=== PATIENT | female | born 1945 ===

== ENCOUNTER 2021-07-15 03:16 | Emergency (ER) | payer MEDICARE, OTHER ==
--- NOTE | 2021-07-15 03:34 | EDM.PDOC ---
ED HPI GENERAL MEDICAL PROBLEM - General Stated Complaint: CHEST PAIN COVID POSITIVE Time Seen by Provider: 07/15/21 03:31 Source of Information: Reports: Patient, RN, RN Notes Reviewed History Limitations: Reports: No Limitations - History of Present Illness INITIAL COMMENTS - FREE TEXT/NARRATIVE: Cristi is a 75 y/o female who present to the ED via personal vehicle with complaints of chest pain. The patient reports she was diagnosed with a COVID infection six days ago as her tested positive; she developed fever four days ago. She notes the pain began in her chest approximately one hour prior to her arrival to this facility. She characterized the pain as a burning that was localized to her midsternal abdomen/chest. Additionally, she noted nausea which has slowly subsided along with her pain. She tried a dose of Mylanta and Tums x2 which offered her no immediate relief. She denies recent fever, shaking chills, cough, sore throat, palpitations, shortness of breath, vomiting, abdomi nal pain, vomiting, constipation, diarrhea, dysuria, or hematuria. The patient currently characterizes her pain as a dull ache. - Related Data Allergies Allergy/AdvReac Type Severity Reaction Status Date / Time hydromorphone [From Dilaudid] Allergy Shortness Verified 07/15/21 03:41 of Breath nickel Allergy Rash Verified 07/15/21 03:41 Sulfa (Sulfonamide Allergy Hives Verified 07/15/21 03:41 Antibiotics) Home Meds: Home Meds Aspirin 81 mg PO BRK 07/03/16 [History] Calcium Carbonate/Vitamin D3 [Calcium 500 + Vit D Caplet] 1,200 mg PO BID 07/03/16 [History] Denosumab [Prolia] 60 mg SUBCUT ONETIME 07/03/16 [History] Ergocalciferol (Vitamin D2) [Vitamin D] 5,000 unit PO DAILY 07/03/16 [History] Levothyroxine [Synthroid] 112 mcg PO ACBREAKFAST 07/03/16 [History] Magnesium 250 mg PO DAILY 07/03/16 [History] Rosuvastatin [Crestor] 5 mg PO BEDTIME 07/03/16 [History] Multivitamin [Multivitamins] 1 cap PO DAILY 01/04/17 [History] Cimetidine [Tagamet Hb] 1 tab PO ASDIRECTED 07/07/19 [History] Ubidecarenone [Coq-10] 100 mg PO DAILY 02/11/21 [History] Past Medical History HEENT History: Reports: Glaucoma, Impaired Vision Cardiovascular History: Reports: High Cholesterol Respiratory History: Reports: Sleep Apnea Other Respiratory History: WEARS CPAP MACHINE AT NIGHT Gastrointestinal History: Reports: Cholelithiasis, GERD, Other (See Below) Other Gastrointestinal History: GASTRIC ULCER - IMPROVED TODAY Genitourinary History: Reports: None WEIGHER OPERATOR History: Reports: , Other (See Below) Other WEIGHER OPERATOR History: PROLAPSED VAGINAL WALL - REPAIRED Musculoskeletal History: Reports: Osteoarthritis, Osteoporosis Neurological History: Reports: None Psychiatric History: Reports: None Endocrine/Metabolic History: Reports: Hypothyroidism Hematologic History: Reports: None Immunologic History: Reports: None Oncologic (Cancer) History: Reports: Thyroid Dermatologic History: Reports: None - Infectious Disease History Infectious Disease History: Reports: Chicken Pox, Measles - Past Surgical History Head Surgeries/Procedures: Reports: None HEENT Surgical History: Reports: Adenoidectomy, Cataract Surgery, Tonsillectomy, Other (See Below) Other HEENT Surgeries/Procedures: cataract extraction bilateral Cardiovascular Surgical History: Reports: None Respiratory Surgical History: Reports: None GI Surgical History: Reports: Appendectomy, Cholecystectomy, Colonoscopy, EGD Female Surgical History: Reports: Breast Biopsy, Hysterectomy, Other (See Below) Other Female Surgeries/Procedures: surg for vaginal prolapse Endocrine Surgical History: Reports: Parathyroidectomy, Thyroidectomy Musculoskeletal Surgical History: Reports: None Oncologic Surgical History: Reports: None Dermatological Surgical History: Reports: None Social & Family History - Family History Family Medical History: No Pertinent Family History - Caffeine Use Caffeine Use: Reports: Coffee Other Caffeine Use: AVERAGE OF 2-5 CUPS OF COFFEE DAILY ED ROS GENERAL - Review of Systems Review Of Systems: Comprehensive ROS is negative, except as noted in HPI. ED EXAM, GENERAL - Physical Exam Exam: See Below Exam Limited By: No Limitations General Appearance: Alert, No Apparent Distress, Thin Eye Exam: Bilateral Eye: EOMI, Normal Inspection, PERRL (3mm) Ears: Normal External Exam, Normal Canal, Hearing Grossly Normal, Normal TMs Nose: Normal Inspection, Normal Mucosa, No Blood Throat/Mouth: Normal Inspection, Normal Oropharynx, Normal Voice, No Airway Compromise Head: Atraumatic, Normocephalic Neck: Normal Inspection, Full Range of Motion Respiratory/Chest: No Respiratory Distress, Lungs Clear, Normal Breath Sounds, No Accessory Muscle Use, Chest Non-Tender. No: Crackles, Rales, Rhonchi, Wheezing, Stridor Cardiovascular: Normal Peripheral Pulses, Regular Rate, Rhythm, No Edema, No Gallop, No JVD, No Murmur, No Rub Peripheral Pulses: 2+: Radial (L), Radial (R), Femoral (L) GI/Abdominal: Normal Bowel Sounds, Soft, Non-Tender, No Distention, No Abnormal Bruit, No Mass, Pelvis Stable. No: Guarding, Rigid, Rebound (Female) Exam: Deferred Rectal (Female) Exam: Deferred Back Exam: Normal Inspection, Full Range of Motion. No: CVA Tenderness (L), CVA Tenderness (R) Extremities: Normal Inspection, Normal Range of Motion, Non-Tender, No Pedal Edema, Normal Capillary Refill Neurological: Alert, Oriented, CN II-XII Intact, Normal Cognition, Normal Gait, No Motor/Sensory Deficits Psychiatric: Normal Affect, Normal Mood Skin Exam: Warm, Dry, Intact, Normal Color, No Rash. No: Cyanosis, Jaundice, Mottled, Pallor #2 Interpretation EKG Date: 07/15/21 Time: 03:26 Rhythm: NSR Rate (Beats/Min): 78 [place]: Normal P-Wave: Present QRS: Normal ST-T: Normal QT: Prolonged (0.527) AL/PQ Interval: 0.132 Comparison: NA - No Prior EKG EKG Interpretation Comments: NSR; Prolonged QT; No evidence of acute myocardial ischemia Course - Vital Signs Last Recorded V/S: Last Vital Signs Temp 97.1 F 07/15/21 03:43 Pulse 81 07/15/21 03:43 Resp 18 07/15/21 03:43 BP 148/92 H 07/15/21 03:43 Pulse Ox 97 07/15/21 03:43 - Orders/Labs/Meds Labs: Laboratory Tests 07/15/21 07/15/21 07/15/21 Range/Units 03:35 03:35 03:35 WBC 6.5 (5.0-10.0) 10^3/uL RBC 5.23 (4.2-5.4) 10^6/uL Hgb 16.0 (12.0-16.0) g/dL Hct 48.4 H (37.0-47.0) % MCV 92.5 D (80-100) fL MCH 30.6 (27.0-34.0) pg MCHC 33.1 (33.0-35.0) g/dL Plt Count 197 (150-450) 10^3/uL Neut % (Auto) 61.2 (42.2-75.2) % Lymph % (Auto) 25.9 (20.5-50.1) % Mcmullen % (Auto) 10.9 H (2-8) % Eos % (Auto) 1.7 (1.0-3.0) % Baso % (Auto) 0.3 (0.0-1.0) % PT 9.6 (9.0-12.0) SEC INR 1.0 (0.9-1.2) APTT 25.7 (22.0-34.0) SEC D-Dimer, Quantitative 282 (0-400) ng/mL Sodium 141 (136-145) mmol/L Potassium 3.9 (3.5-5.1) mmol/L Chloride 103 (98-107) mmol/L Carbon Dioxide 27 (21-32) mmol/L Anion Gap 14.9 H (7-13) mEq/L BUN 18 (7-18) mg/dL Creatinine 0.93 (0.55-1.02) mg/dL Est Cr Clr Drug Dosing 43.75 mL/min Estimated GFR (MDRD) 58 BUN/Creatinine Ratio 19.4 (No establ ref range) Glucose 112 H (70-99) mg/dL Lactic Acid (0.4-2.0) mmol/L Calcium 9.8 (8.5-10.1) mg/dL Magnesium 2.3 (1.8-2.4) mg/dL Total Bilirubin 0.4 (0.2-1.0) mg/dL AST 39 H (15-37) U/L ALT 48 (14-59) U/L Alkaline Phosphatase 59 (46-116) U/L Troponin I High Sens 5 (<=51) pg/mL C-Reactive Protein 1.3 H (0.0-0.9) mg/dL B-Natriuretic Peptide 30 (0-100) pg/ml Total Protein 7.2 (6.4-8.2) g/dL Albumin 3.6 (3.4-5.0) g/dL Globulin 3.6 Albumin/Globulin Ratio 1.0 Amylase (25-115) U/L Lipase (73-393) U/L Urine Color (YELLOW) Urine Appearance (CLEAR) Urine pH (5.0-9.0) Ur Specific [place] (1.005-1.030) Urine Protein (NEGATIVE) Urine Glucose (UA) (NEGATIVE) Urine Ketones (NEGATIVE) Urine Occult Blood (NEGATIVE) Urine Nitrite (NEGATIVE) Urine Bilirubin (NEGATIVE) Urine Urobilinogen (0.2-1.0) mg/dL Ur Leukocyte Esterase (NEGATIVE) Urine RBC (0-5) /HPF Urine WBC (0-5/HPF) /HPF Ur Epithelial Cells (NOT SEEN) /HPF Urine Bacteria (0-FEW/HPF) /HPF Ethyl Alcohol (0) mg/dL 07/15/21 07/15/21 07/15/21 Range/Units 03:35 03:35 03:35 WBC (5.0-10.0) 10^3/uL RBC (4.2-5.4) 10^6/uL Hgb (12.0-16.0) g/dL Hct (37.0-47.0) % MCV (80-100) fL MCH (27.0-34.0) pg MCHC (33.0-35.0) g/dL Plt Count (150-450) 10^3/uL Neut % (Auto) (42.2-75.2) % Lymph % (Auto) (20.5-50.1) % Mcmullen % (Auto) (2-8) % Eos % (Auto) (1.0-3.0) % Baso % (Auto) (0.0-1.0) % PT (9.0-12.0) SEC INR (0.9-1.2) APTT (22.0-34.0) SEC D-Dimer, Quantitative (0-400) ng/mL Sodium (136-145) mmol/L Potassium (3.5-5.1) mmol/L Chloride (98-107) mmol/L Carbon Dioxide (21-32) mmol/L Anion Gap (7-13) mEq/L BUN (7-18) mg/dL Creatinine (0.55-1.02) mg/dL Est Cr Clr Drug Dosing mL/min Estimated GFR (MDRD) BUN/Creatinine Ratio (No establ ref range) Glucose (70-99) mg/dL Lactic Acid 0.9 (0.4-2.0) mmol/L Calcium (8.5-10.1) mg/dL Magnesium (1.8-2.4) mg/dL Total Bilirubin (0.2-1.0) mg/dL AST (15-37) U/L ALT (14-59) U/L Alkaline Phosphatase (46-116) U/L Troponin I High Sens (<=51) pg/mL C-Reactive Protein (0.0-0.9) mg/dL B-Natriuretic Peptide (0-100) pg/ml Total Protein (6.4-8.2) g/dL Albumin (3.4-5.0) g/dL Globulin Albumin/Globulin Ratio Amylase 320 H (25-115) U/L Lipase > 2250 H (73-393) U/L Urine Color (YELLOW) Urine Appearance (CLEAR) Urine pH (5.0-9.0) Ur Specific [place] (1.005-1.030) Urine Protein (NEGATIVE) Urine Glucose (UA) (NEGATIVE) Urine Ketones (NEGATIVE) Urine Occult Blood (NEGATIVE) Urine Nitrite (NEGATIVE) Urine Bilirubin (NEGATIVE) Urine Urobilinogen (0.2-1.0) mg/dL Ur Leukocyte Esterase (NEGATIVE) Urine RBC (0-5) /HPF Urine WBC (0-5/HPF) /HPF Ur Epithelial Cells (NOT SEEN) /HPF Urine Bacteria (0-FEW/HPF) /HPF Ethyl Alcohol < 3 (0) mg/dL 07/15/21 Range/Units 05:30 WBC (5.0-10.0) 10^3/uL RBC (4.2-5.4) 10^6/uL Hgb (12.0-16.0) g/dL Hct (37.0-47.0) % MCV (80-100) fL MCH (27.0-34.0) pg MCHC (33.0-35.0) g/dL Plt Count (150-450) 10^3/uL Neut % (Auto) (42.2-75.2) % Lymph % (Auto) (20.5-50.1) % [place] % (Auto) (2-8) % Eos % (Auto) (1.0-3.0) % Baso % (Auto) (0.0-1.0) % PT (9.0-12.0) SEC INR (0.9-1.2) APTT (22.0-34.0) SEC D-Dimer, Quantitative (0-400) ng/mL Sodium (136-145) mmol/L Potassium (3.5-5.1) mmol/L Chloride (98-107) mmol/L Carbon Dioxide (21-32) mmol/L Anion Gap (7-13) mEq/L BUN (7-18) mg/dL Creatinine (0.55-1.02) mg/dL Est Cr Clr Drug Dosing mL/min Estimated GFR (MDRD) BUN/Creatinine Ratio (No establ ref range) Glucose (70-99) mg/dL Lactic Acid (0.4-2.0) mmol/L Calcium (8.5-10.1) mg/dL Magnesium (1.8-2.4) mg/dL Total Bilirubin (0.2-1.0) mg/dL AST (15-37) U/L ALT (14-59) U/L Alkaline Phosphatase (46-116) U/L Troponin I High Sens (<=51) pg/mL C-Reactive Protein (0.0-0.9) mg/dL B-Natriuretic Peptide (0-100) pg/ml Total Protein (6.4-8.2) g/dL Albumin (3.4-5.0) g/dL Globulin Albumin/Globulin Ratio Amylase (25-115) U/L Lipase (73-393) U/L Urine Color Yellow (YELLOW) Urine Appearance Clear (CLEAR) Urine pH 7.0 (5.0-9.0) Ur Specific [place] 1.020 (1.005-1.030) Urine Protein Negative (NEGATIVE) Urine Glucose (UA) Negative (NEGATIVE) Urine Ketones Negative (NEGATIVE) Urine Occult Blood Trace-intact H (NEGATIVE) Urine Nitrite Negative (NEGATIVE) Urine Bilirubin Negative (NEGATIVE) Urine Urobilinogen 0.2 (0.2-1.0) mg/dL Ur Leukocyte Esterase Negative (NEGATIVE) Urine RBC 0-5 (0-5) /HPF Urine WBC 0-5 (0-5/HPF) /HPF Ur Epithelial Cells Few (NOT SEEN) /HPF Urine Bacteria Rare (0-FEW/HPF) /HPF Ethyl Alcohol (0) mg/dL Meds: Medications Discontinued Medications Generic Name Dose Route Start Last Admin Trade Name Isaiah PRN Reason Stop Dose Admin Iopamidol 100 ml 07/15/21 04:22 07/15/21 05:17 Iopamidol 612 Mg/Ml 100 Ml Bottle IVPUSH 07/15/21 04:23 75 ml ONETIME ONE Administration - Radiology Interpretation Free Text/Narrative:: [facility] Final Radiology Report Call: [phone] assistance Online chat: [email or web address] Name: CRISTI FORBES Age: 75Years F Date: 07/15/2021 SSN: -- : [id number] Study: CT ABDOMEN PELVIS W CONT Requesting Physician: Jeniffer Powell Images: [id number] Addl Studies: Provided Clinical History: Lipase >2250, midsternal abdominal/chest pain Contrast: With Contrast Medium: isovue 300 Contrast Amount: 75 mL Contrast Method: Intravenous (IV) Page 1 of 2 PROCEDURE INFORMATION: Exam: CT Abdomen And Pelvis With Contrast Exam date and time: 07/15/2021 5:14 AM Age: 75 years old Clinical indication: Abdominal pain; Generalized; Prior surgery; Surgery date: 6+ months; Surgery type: Gallbladder and appendix removed; Patient HX: Thyroid cancer, high blood pressure; Additional info: Lipase >2250, midsternal abdominal/chest pain TECHNIQUE: Imaging protocol: Computed tomography of the abdomen and pelvis with contrast. Radiation optimization: All CT scans at this facility use at least one of these dose optimization techniques: automated exposure control; mA and/or kV adjustment per patient size (includes targeted exams where dose is matched to clinical indication); or iterative reconst ruction. Contrast material: ISOVUE 300; Contrast volume: 75 ml; Contrast route: INTRAVENOUS (IV); COMPARISON: No relevant prior studies available. FINDINGS: Liver: Normal. No mass. Gallbladder and bile ducts: Status post cholecystectomy. Pancreas: No CT evidence for pancreatitis. Spleen: Normal. No splenomegaly. Adrenal glands: Normal. No mass. Kidneys and ureters: Bilateral nonobstructing renal calculi measuring 1-2 mm each but no evidence for hydronephrosis or ureterolithiasis. Stomach and bowel: Colonic diverticulosis but no definite diverticulitis. Appendix: Status post appendectomy. Intraperitoneal space: Unremarkable. No free air. No significant fluid collection. Vasculature: Unremarkable. No abdominal aortic aneurysm. Lymph nodes: Unremarkable. No enlarged lymph nodes. Urinary bladder: Unremarkable as visualized. Reproductive: Unremarkable as visualized. Bones/joints: Unremarkable. No acute fracture. Soft tissues: Unremarkable. IMPRESSION: 1. Bilateral nonobstructing renal calculi measuring 1-2 mm each but no evidence for hydronephrosis or ureterolithiasis. 2. No CT evidence for pancreatitis. 3. Colonic diverticulosis but no definite diverticulitis. Thank you for allowing us to participate in the care of your patient. Dictated and Authenticated by: Silvestre Singh MD 07/15/2021 6:30 AM Central Time ([place] & [place]) - Re-Assessments/Exams Free Text/Narrative Re-Assessment/Exam: 07/15/21 CT abdomen/pelvis obtained given elevation in Lipase. Patient continues to deny pain at this time. CT unremarkable for acute pancreatitis. Case discussed with Dr. Polk who states he would gladly accept the patient if she felt she required monitoring, however she is currently nonsymptomatic, and remains that way. The patient states she would not like to be hospitalized given her lack of symptoms. Plan for patient to follow up in 24 hours with PCP for repeat lab work. Patient to follow up with her PCP sooner, or return to the emergency department, should symptoms return. Red flag signs and symptoms which would warrant immediate reevaluation reviewed. Patient verbalized understanding and agreement with the plan of care. Departure - Departure Time of Disposition: 07:08 Disposition: Home, Self-Care 01 Condition: Fair Clinical Impression: Elevated amylase and lipase, COVID-19 Instructions: COVID-19: What to Do If You Are Sick- [facility] (11/27/2020) Referrals: PCP,None [Primary Care Provider] - Forms: ED Department Discharge Additional Instructions: 1.) Follow up with your primary care provider tomorrow for repeat labs, including liver enzymes, lipase, and amylase. 2.) Clear liquid diet. 3.) Return to the emergency department with any return of symptoms.
[2021-07-15 03:51] VITALS: BP 148/92; PULSE 81
[2021-07-15 04:05] LABS: ANION GAP 14.9 mEq/L (7-13)
[2021-07-15 04:15] LABS: PTT,PARTIAL THROMBOPLSTIN TIME 25.7 SEC (22.0-34.0)
[2021-07-15] MEDS ORDERED: Iopamidol 612 MG/ML 100 ML Bottle IVPUSH ONE (04:22)
--- NOTE | 2021-07-15 06:31 | CT ---
PROCEDURE INFORMATION: Exam: CT Abdomen And Pelvis With Contrast Exam date and time: 07/15/2021 5:14 AM Age: 75 years old Clinical indication: Abdominal pain; Generalized; Prior surgery; Surgery date: 6+ months; Surgery type: Gallbladder and appendix removed; Patient HX: Thyroid cancer, high blood pressure; Additional info: Lipase >2250, midsternal abdominal/chest pain TECHNIQUE: Imaging protocol: Computed tomography of the abdomen and pelvis with contrast. Radiation optimization: All CT scans at this facility use at least one of these dose optimization techniques: automated exposure control; mA and/or kV adjustment per patient size (includes targeted exams where dose is matched to clinical indication); or iterative reconstruction. Contrast material: ISOVUE 300; Contrast volume: 75 ml; Contrast route: INTRAVENOUS (IV); COMPARISON: No relevant prior studies available. FINDINGS: Liver: Normal. No mass. Gallbladder and bile ducts: Status post cholecystectomy. Pancreas: No CT evidence for pancreatitis. Spleen: Normal. No splenomegaly. Adrenal glands: Normal. No mass. Kidneys and ureters: Bilateral nonobstructing renal calculi measuring 1-2 mm each but no evidence for hydronephrosis or ureterolithiasis. Stomach and bowel: Colonic diverticulosis but no definite diverticulitis. Appendix: Status post appendectomy. Intraperitoneal space: Unremarkable. No free air. No significant fluid collection. Vasculature: Unremarkable. No abdominal aortic aneurysm. Lymph nodes: Unremarkable. No enlarged lymph nodes. Urinary bladder: Unremarkable as visualized. Reproductive: Unremarkable as visualized. Bones/joints: Unremarkable. No acute fracture. Soft tissues: Unremarkable. IMPRESSION: 1. Bilateral nonobstructing renal calculi measuring 1-2 mm each but no evidence for hydronephrosis or ureterolithiasis. 2. No CT evidence for pancreatitis. 3. Colonic diverticulosis but no definite diverticulitis.
== END 2021-07-15 07:15 | disposition home or self-care (01) ==
LOC: DL.ED 03:16
DX: U07.1 COVID-19 (principal); R74.8 Abnormal levels of other serum enzymes; M19.90 Unspecified osteoarthritis, unspecified site; E78.00 Pure hypercholesterolemia, unspecified; E03.9 Hypothyroidism, unspecified; Z88.5 Allergy status to narcotic agent; Z91.048 Other nonmedicinal substance allergy status; Z79.82 Long term (current) use of aspirin; Z79.899 Other long term (current) drug therapy
CPT/HCPCS: 36415; 74177; 80053; 80307; 81001; 82150; 83605; 83690; 83735; 83880; 84484; 85025; 85379; 85610; 85730; 86140; 93005; 99285; Q9967

== ENCOUNTER 2022-02-17 18:23 | Emergency (ER) | payer MEDICARE, OTHER ==
[2022-02-17] MEDS ORDERED: Acetaminophen/HYDROcodone 325-5 MG Tab PO ONE (18:24)
[2022-02-17] MEDS ORDERED: Sodium Chloride 0.9% 10 ML Syringe FLUSH PRN (18:26)
[2022-02-17] MEDS ORDERED: Aspirin 81 MG Tab.Chew PO ONE (18:51)
[2022-02-17 19:04] LABS: ANION GAP 11.2 mEq/L (7-13); CHLORIDE,CL 105 mmol/L (98-107); SODIUM,NA 141 mmol/L (136-145)
[2022-02-17 19:51] VITALS: BP 189/84; PULSE 76
[2022-02-17] MEDS ORDERED: Iopamidol 612 MG/ML 100 ML Bottle IVPUSH ONE (19:55)
[2022-02-17] MEDS ORDERED: Pantoprazole 40 MG Vial IVPUSH ONE (20:48)
[2022-02-17] MEDS ORDERED: Acetaminophen/HYDROcodone 325-5 MG Tab ONE (21:06)
== END 2022-02-17 21:29 | disposition home or self-care (01) ==
LOC: DL.ED 18:23
DX: R10.10 Upper abdominal pain, unspecified (principal); K21.9 Gastro-esophageal reflux disease without esophagitis; Z86.16 Personal history of COVID-19; Z90.49 Acquired absence of other specified parts of digestive tract; Z90.710 Acquired absence of both cervix and uterus; Z79.899 Other long term (current) drug therapy; Z79.82 Long term (current) use of aspirin; Z88.5 Allergy status to narcotic agent; Z88.2 Allergy status to sulfonamides; Z91.048 Other nonmedicinal substance allergy status
CPT/HCPCS: 36415; 71045; 74177; 80053; 81001; 83690; 83735; 83880; 84484; 85025; 85379; 93005; 93010; 96374; 99284; 99285; A9270; C9113; J3490; Q9967